=== PATIENT | male | born 1955 | race Caucasian/White ===

== ENCOUNTER 2020-04-30 08:04 | Emergency (ER) | payer MEDICARE ==
[~2020-04-30] VITALS: Ht 170.2 cm; Wt 77.2 kg
[~2020-04-30 08:04] MED LIST: ASPI81TA45 PO; ATOR40TA78 PO; CARV3.1212 PO; CELE100C PO; METH40TA3 PO; TICA90TA PO; TRAM50TA2 PO
[2020-04-30 08:10] VITALS: BP 145/94
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
[2020-04-30] MEDS ORDERED: METHADONE INTENSOL 10 MG/ML ORAL CONC PO ONE (09:00)
[2020-04-30] MEDS ORDERED: PROMETHAZINE 25 MG/ML, 1ML IM ONE (09:00)
--- NOTE | 2020-04-30 09:11 | NUR ---
PER PHARMACY, METHADONE READY AT 1025.
[2020-04-30] MEDS ORDERED: PROMETHAZINE 25 MG/ML, 1ML ONE (09:16)
--- NOTE | 2020-04-30 10:08 | NUR ---
TASK RN: PT REPORTS IMPROVED S/S WITH MEDICATIONS. DC EDUCATION PROVIDED, PT DEMONSTRATED UNDERSTANDING. PT AMBULATED STEADILY TO DC WITH RN. FRIEND TO TRANSPORT PT HOME.
== END 2020-04-30 10:11 | disposition home or self-care (01) ==
LOC: ED 08:52
DX: F11.20 Opioid dependence, uncomplicated (principal); R11.2 Nausea with vomiting, unspecified; R19.7 Diarrhea, unspecified; R10.9 Unspecified abdominal pain; M79.10 Myalgia, unspecified site; I21.9 Acute myocardial infarction, unspecified; F17.200 Nicotine dependence, unspecified, uncomplicated
CPT/HCPCS: 93005; 96372; 99283; J2550

== ENCOUNTER → 2021-03-04 | Outpatient (CLI) | payer OTHER ==
[~2021-03-04] MED LIST changes: +ALPR1TAB2 PO
== END | disposition home or self-care (01) ==
LOC: CFH 06:49
PROVIDERS: ATTEND Registered Nurse Registered Nurse First Assistant
DX: M51.16 Intervertebral disc disorders with radiculopathy, lumbar region (principal); M48.061 Spinal stenosis, lumbar region without neurogenic claudication
CPT/HCPCS: 72120; 72148